=== PATIENT | male | born 1995 | race Caucasian/White ===

== ENCOUNTER 2018-02-27 18:35 | Emergency (ER) | payer SELFPAY ==
[2018-02-27] MEDS ORDERED: Acetaminophen/oxyCODONE 325-5 MG Tab PO ONE (19:09)
[2018-02-27] MEDS ORDERED: Bacitracin Oint 1 GM U/D Packet TOP ONE (19:10)
[2018-02-27] MEDS ORDERED: Diphtheria,Pertussis(Acell),Tetanus Vaccine 0.5 ML SDV IM ONE (19:10)
[2018-02-27] MEDS ORDERED: Lidocaine 2% Viscous Solution 15 ML Cup TOP ONE (19:10)
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
== END 2018-02-27 20:32 | disposition home or self-care (01) ==
LOC: JP.ED 18:35
DX: S40.212A Abrasion of left shoulder, initial encounter (principal); S50.312A Abrasion of left elbow, initial encounter; S70.212A Abrasion, left hip, initial encounter; T14.8XXA Other injury of unspecified body region, initial encounter; Z23 Encounter for immunization; V19.9XXA Pedal cyclist (driver) (passenger) injured in unspecified traffic accident, initial encounter
CPT/HCPCS: 72170; 73030; 73080; 90471; 90715; 99284; A9270

== ENCOUNTER 2020-08-31 06:46 | Day surgery (SDC) | payer MEDICAID, OTHER ==
[2020-08-31] MEDS ORDERED: fentaNYL 100 MCG/2 ML SDV ONE (07:23)
[2020-08-31] MEDS ORDERED: Midazolam 1 MG/ML 2 ML SDV ONE (07:23)
[2020-08-31] MEDS ORDERED: Propofol 200 MG/20 ML SDV ONE (07:23)
[2020-08-31] MEDS ORDERED: Sodium Chloride 0.9% 1,000 ML IV SCH (07:45)
--- NOTE | 2020-08-31 09:28 | OR ---
DATE OF PROCEDURE: 08/31/2020 SURGEON: Mckinley Swanson MD PROCEDURE: Esophagogastroduodenoscopy. FINDINGS: 1. [place]-like/salmon-colored inflammation concerning for reflux disease at the gastroesophageal junction, less than 1 cm in length. 2. No other gross abnormalities. COMPLICATIONS: None. SILVER PLATER: None. ANESTHESIA: MAC. PREOPERATIVE DIAGNOSIS: Epigastric/umbilical pain. POSTOPERATIVE DIAGNOSIS: Epigastric/umbilical pain. RISKS: Risks, benefits, alternatives, limitations including, but not limited to infection, bleeding, perforation, false positives, and false negatives were explained to the patient, who wished to proceed. PROCEDURE IN DETAIL: The patient was placed in the left lateral decubitus position. The EGD scope was introduced and advanced atraumatically to the second part of the duodenum. No evidence of duodenitis or ulceration were noted. Within the stomach itself, there was no ulceration or gastritis. No hiatal hernia on retroflexion. The GE junction showed a 1 cm area with salmon-like tissue concerning for reflux disease. This was biopsied using cold biopsy forceps. All 4 quadrants were also biopsied without difficulty. The esophagus was inspected without abnormality. The patient tolerated procedure well. Mckinley Swanson MD /[id number]
== END 2020-08-31 09:35 | disposition home or self-care (01) ==
LOC: JP.SDS 06:46
PROVIDERS: ATTEND Surgery
DX: R10.13 Epigastric pain (principal); J45.909 Unspecified asthma, uncomplicated
CPT/HCPCS: 43239; J2250; J2704; J3010; J7030